=== PATIENT | male | born 1945 | race Caucasian/White ===

== ENCOUNTER 2019-04-26 14:56 | Observation (INO) ==
[2019-04-26] MEDS ORDERED: CeFAZolin Syr 2,000MG/20 ML 2,000 MG/20 ML SYRINGE IVPB ONE (15:09)
[2019-04-26] MEDS ORDERED: Ringers Solution, Lactated 1,000 ML IVC SCH ×2 (15:15→20:01)
[2019-04-26] MEDS ORDERED: *HR* Labetalol 20 MG/4 ML SYRINGE IVP PRN (15:38)
[2019-04-26] MEDS ORDERED: Ondansetron 4 MG/2 ML VIAL IVP PRN ×2 (15:38→20:01)
[2019-04-26] MEDS ORDERED: *HR* Promethazine 25 MG/ML VIAL IVP PRN ×2 (15:38→20:01)
[2019-04-26] MEDS ORDERED: Gabapentin 100 MG CAPSULE PO ONE (15:51)
[2019-04-26] MEDS ORDERED: Ethanol\\Acetic Acid\\Na Ace\\Ben 1,000 ML IRRIG.SOLN IR ONE (16:14)
[2019-04-26] MEDS ORDERED: Dexamethasone 4 MG/ML VIAL ONE (16:16)
[2019-04-26] MEDS ORDERED: Ondansetron 4 MG/2 ML VIAL ONE (16:16)
[2019-04-26] MEDS ORDERED: *HR* Succinylcholine 200 MG/10 ML VIAL IVP ONE (16:16)
[2019-04-26] MEDS ORDERED: Lidocaine -MPF 2% 2 ML VIAL ONE (16:16)
[2019-04-26] MEDS ORDERED: *HR* FentaNYL (PF) 100 MCG/2 ML VIAL ONE ×2 (16:20→17:35)
[2019-04-26] MEDS ORDERED: *HR* Propofol 200 MG/20 ML VIAL IVP ONE (16:21)
[2019-04-26] MEDS ORDERED: *HR* PHENYLEPHRINE 1,000 MCG/10 ML SYRINGE IVP ONE (17:45)
[2019-04-26] MEDS: *HR* HYDROmorphone (PF) 1 MG/ML SYRINGE IVP PRN ×4 (18:31→19:12)
[2019-04-26 19:03] LABS: Hematocrit 32.3 % (37.5-50.1); Hemoglobin 10.3 g/dL (12.9-16.9)
[2019-04-26] MEDS ORDERED: Dextrose Gel 15 GM/37.5 ML TUBE PO PRN ×2 (20:01)
[2019-04-26] MEDS ORDERED: *HR* Dextrose 50 % in Water (Syg) 50 ML SYRINGE IVP PRN (20:01)
[2019-04-26] MEDS ORDERED: *HR* OxyCODONE Immed Rel 5 MG TABLET PO PRN (20:01)
[2019-04-26] MEDS ORDERED: Naloxone 0.4 MG/ML INJ IVP PRN (20:01)
[2019-04-26] MEDS ORDERED: MOM Conc 10 ML UD.LIQ PO PRN (20:01)
[2019-04-26] MEDS ORDERED: Sennosides 8.6 MG TABLET PO PRN (20:01)
[2019-04-26] MEDS ORDERED: D5% in Water 1,000 ML IVC PRN (20:01)
[2019-04-26] MEDS ORDERED: Insulin LISPRO 300 UNITS/3 ML VIAL SQ SCH (21:00)
[2019-04-26] MEDS: Ascorbic Acid 500 MG TABLET PO SCH (22:04)
[2019-04-26] MEDS: HYDROcodone BIT/Homatropine 5 MG TABLET PO PRN (22:04)
[2019-04-27] MEDS: ceFAZolin 2,000 MG in 0.9 % Sodium Chloride 100 ML IVPB SCH ×2 (01:25→08:11)
[2019-04-27 06:35] LABS: Basophils % 0.1 %; Hematocrit 28.2 % (37.5-50.1); Hemoglobin 9.3 g/dL (12.9-16.9); Immature Granulocytes % 0.8 % (0-4); Lymphocytes # 1.5 K/mcL (0.6-4.6); Lymphocytes % 7.7 %; Mean Corpuscular Hemoglobin 29.8 pg (28.0-33.3); Mean Corpuscular Volume 90.4 fL (83.0-100.0); Mean Platelet Volume 10.1 fL (9.4-12.4); Monocytes # 1.3 K/mcL (0.0-1.3); Monocytes % 6.4 %; Neutrophils # 16.9 K/mcL (1.6-8.9); Platelet Count 524 K/mcL (140-400); Red Blood Count 3.12 M/mcL (4.19-5.50); Red Cell Distribution Width 15.9 % (11.5-14.5); White Blood Count 19.9 K/mcL (4.3-11.1)
[2019-04-27 07:04] LABS: BUN/Creatinine Ratio 24 (6-26); Blood Urea Nitrogen 19 mg/dL (8-23); Calcium 8.2 mg/dL (8.6-10.3); Carbon Dioxide 23 mEq/L (23-29); Chloride 109 mEq/L (98-107); Glucose 137 mg/dL (70-105); Osmolality,Calculated 290 (280-300); Potassium 4.2 mEq/L (3.5-5.1); Sodium 138 mEq/L (136-145); eGFR For African Americans > 60 (> 60); eGFR For Non-African Americans > 60 (> 60)
[2019-04-27 07:12] VITALS: BP 148/86
[2019-04-27] MEDS ORDERED: Insulin LISPRO 300 UNITS/3 ML VIAL SQ SCH (07:30)
[2019-04-27] MEDS: Ascorbic Acid 500 MG TABLET PO SCH (08:10)
[2019-04-27] MEDS ORDERED: Multivit/Ca/Min/Fe/FA 1 TAB TABLET PO SCH (09:00)
[2019-04-27] MEDS: HYDROcodone BIT/Homatropine 5 MG TABLET PO PRN (11:15)
[2019-04-27] MEDS ORDERED: Aspirin Enteric Coated 81 MG Tablet PO SCH (16:01)
== END 2019-04-27 12:55 | disposition home health service (06) ==
LOC: SAMDAY 14:56 → 3NENU 14:56
PROVIDERS: ADMIT Orthopaedic Surgery; ATTEND Orthopaedic Surgery

== ENCOUNTER 2019-05-17 11:13 | Inpatient (IN) ==
[2019-05-17] MEDS ORDERED: Naloxone 0.4 MG/ML INJ IVP PRN (12:35)
[2019-05-17 13:06] LABS: Basophils % 0.3 %; Eosinophils # 0.2 K/mcL (0.0-0.6); Eosinophils % 2.3 %; Hematocrit 29.5 % (37.5-50.1); Immature Granulocytes % 0.5 % (0-4); Lymphocytes # 1.1 K/mcL (0.6-4.6); Lymphocytes % 12.1 %; Mean Corpuscular HGB Conc 30.5 g/dL (31.6-35.5); Mean Corpuscular Hemoglobin 26.8 pg (28.0-33.3); Mean Corpuscular Volume 87.8 fL (83.0-100.0); Mean Platelet Volume 9.2 fL (9.4-12.4); Monocytes # 0.6 K/mcL (0.0-1.3); Monocytes % 6.5 %; Neutrophils # 6.9 K/mcL (1.6-8.9); Platelet Count 411 K/mcL (140-400); Red Blood Count 3.36 M/mcL (4.19-5.50); Red Cell Distribution Width 18.6 % (11.5-14.5); Segmented Neutrophils % 78.3 %; White Blood Count 8.9 K/mcL (4.3-11.1)
[2019-05-17 13:11] LABS: INR 1.4; Prothrombin Time 15.4 Seconds (9.4-12.1)
[2019-05-17 13:18] LABS: Alanine Aminotransferase 14 Units/L (7-52); Albumin 2.5 g/dL (3.5-5.7); Albumin/Globulin Ratio 0.9 (1.1-2.2); Alkaline Phosphatase 154 Units/L (34-104); Aspartate Amino Transferase 23 Units/L (13-39); BUN/Creatinine Ratio 16 (6-26); Bilirubin,Total 0.4 mg/dL (0.3-1.0); Blood Urea Nitrogen 13 mg/dL (8-23); Calcium 8.1 mg/dL (8.6-10.3); Carbon Dioxide 24 mEq/L (23-29); Chloride 104 mEq/L (98-107); Globulin 2.7 g/dL (2.4-3.5); Glucose 90 mg/dL (70-105); Osmolality,Calculated 280 (280-300); Phosphorous 3.6 mg/dL (2.7-4.5); Potassium 3.6 mEq/L (3.5-5.1); Sodium 135 mEq/L (136-145); Total Protein 5.2 g/dL (6.4-8.9); eGFR For African Americans > 60 (> 60); eGFR For Non-African Americans > 60 (> 60)
[2019-05-17] MEDS: Piperacillin/Tazobactam 3.375 GM in 0.9 % Sodium Chloride Mini Bag 100 ML IVPB SCH (15:52)
[2019-05-17] MEDS ORDERED: *HR* Heparin 5,000 UNIT/ML VIAL SQ SCH (18:00)
[2019-05-17] MEDS: BuPROPion SR (12 HR) 150 MG TABLET PO SCH (18:07)
[2019-05-17] MEDS: Finasteride 5 MG TABLET PO SCH (18:07)
[2019-05-17] MEDS: *HR* Heparin 5,000 UNIT/ML VIAL SQ SCH (18:11)
[2019-05-17 18:24] LABS: Bilirubin,Urine Negative (Negative); Blood,Urine Negative (Negative); Clarity,Urine Clear (Clear); Color,Urine Yellow (Yellow); Glucose,Urine (UA) Normal (Normal); Ketones,Urine Negative (Negative); Specific Gravity,Urine > 1.030 (1.010-1.025)
[2019-05-17 18:25] LABS: Leukocyte Esterase,Urine Negative (Negative); Nitrite,Urine Negative (Negative); Protein,Urine Trace mg/dL (Neg-Trace); Urobilinogen,Urine Normal (Normal)
[2019-05-17] MEDS ORDERED: Latanoprost 2.5 ML BOTTLE BOTH EYES SCH (21:00)
[2019-05-17] MEDS: Gabapentin 100 MG CAPSULE PO SCH (21:36)
[2019-05-18] MEDS: Piperacillin/Tazobactam 3.375 GM in 0.9 % Sodium Chloride Mini Bag 100 ML IVPB SCH ×3 (00:13→17:24)
[2019-05-18 02:01] LABS: Basophils % 0.2 %; Eosinophils # 0.2 K/mcL (0.0-0.6); Eosinophils % 2.5 %; Hematocrit 27.9 % (37.5-50.1); Hemoglobin 8.4 g/dL (12.9-16.9); Immature Granulocytes % 0.5 % (0-4); Lymphocytes # 1.6 K/mcL (0.6-4.6); Mean Corpuscular HGB Conc 30.1 g/dL (31.6-35.5); Mean Corpuscular Hemoglobin 26.3 pg (28.0-33.3); Mean Corpuscular Volume 87.2 fL (83.0-100.0); Mean Platelet Volume 9.7 fL (9.4-12.4); Monocytes # 0.6 K/mcL (0.0-1.3); Monocytes % 7.5 %; Neutrophils # 5.8 K/mcL (1.6-8.9); Platelet Count 430 K/mcL (140-400); Red Cell Distribution Width 18.8 % (11.5-14.5); Segmented Neutrophils % 70.3 %; White Blood Count 8.3 K/mcL (4.3-11.1)
[2019-05-18 02:16] LABS: % Iron Saturation 7 % (20-55); BUN/Creatinine Ratio 12 (6-26); Blood Urea Nitrogen 11 mg/dL (8-23); Calcium 7.9 mg/dL (8.6-10.3); Carbon Dioxide 27 mEq/L (23-29); Chloride 103 mEq/L (98-107); Glucose 76 mg/dL (70-105); Iron 11 mcg/dL (65-175); Osmolality,Calculated 284 (280-300); Potassium 3.5 mEq/L (3.5-5.1); Sodium 138 mEq/L (136-145); Transferrin 113 mg/dL (203-362); eGFR For African Americans > 60 (> 60); eGFR For Non-African Americans > 60 (> 60)
[2019-05-18 02:34] LABS: Ferritin 137 ng/mL (20-250)
[2019-05-18 02:40] LABS: Folate 21.9 ng/mL (3.0-16.0)
[2019-05-18] MEDS: *HR* Heparin 5,000 UNIT/ML VIAL SQ SCH (06:03)
[2019-05-18] MEDS: Gabapentin 100 MG CAPSULE PO SCH ×2 (08:18→20:28)
[2019-05-18] MEDS: BuPROPion SR (12 HR) 150 MG TABLET PO SCH ×2 (08:18→17:27)
[2019-05-18] MEDS: Finasteride 5 MG TABLET PO SCH (08:19)
[2019-05-18] MEDS ORDERED: Dexamethasone 4 MG/ML VIAL ONE (08:44)
[2019-05-18] MEDS ORDERED: Lidocaine -MPF 2% 2 ML VIAL ONE (08:44)
[2019-05-18] MEDS ORDERED: Lidocaine -MPF 4% 5 ML AMPUL ONE (08:44)
[2019-05-18] MEDS ORDERED: Ondansetron 4 MG/2 ML VIAL ONE (08:44)
[2019-05-18] MEDS ORDERED: *HR* Succinylcholine 200 MG/10 ML VIAL IVP ONE (08:44)
[2019-05-18] MEDS ORDERED: *HR* FentaNYL (PF) 100 MCG/2 ML VIAL ONE ×2 (08:44→11:01)
[2019-05-18] MEDS ORDERED: *HR* Propofol 200 MG/20 ML VIAL IVP ONE (08:44)
[2019-05-18] MEDS ORDERED: amLODIPine 5 MG TABLET PO SCH (09:00)
[2019-05-18] MEDS ORDERED: Ethanol\\Acetic Acid\\Na Ace\\Ben 1,000 ML IRRIG.SOLN IR ONE ×2 (11:00→11:54)
[2019-05-18] MEDS ORDERED: Albumin Human 5% 0 GM/0 ML IV.SOLN ONE (11:53)
[2019-05-18] MEDS ORDERED: *HR* HYDROmorphone PF 0.5 MG/0.5 ML SYRINGE IVP PRN (11:55)
[2019-05-18] MEDS ORDERED: *HR* OxyCODONE Immed Rel 5 MG TABLET PO PRN (11:55)
[2019-05-18] MEDS ORDERED: Ondansetron 4 MG/2 ML VIAL IVP ONE (11:55)
[2019-05-18] MEDS ORDERED: *HR* HYDROMORPHONE 2 MG/ML VIAL ONE (12:38)
[2019-05-18 14:02] LABS: Hematocrit 28.3 % (37.5-50.1); Hemoglobin 8.7 g/dL (12.9-16.9)
[2019-05-18] MEDS ORDERED: MOM Conc 10 ML UD.LIQ PO PRN (14:31)
[2019-05-18] MEDS ORDERED: Naloxone 0.4 MG/ML INJ IVP PRN (14:31)
[2019-05-18] MEDS ORDERED: Ringers Solution, Lactated 1,000 ML IVC SCH (14:31)
[2019-05-18] MEDS ORDERED: Ondansetron 4 MG/2 ML VIAL IVP PRN (14:31)
[2019-05-18] MEDS ORDERED: Sennosides 8.6 MG TABLET PO PRN (14:31)
[2019-05-18] MEDS ORDERED: *HR* Promethazine 25 MG/ML VIAL IVP PRN (14:31)
[2019-05-18] MEDS ORDERED: D5% in Water 1,000 ML IVC PRN (14:31)
[2019-05-18] MEDS ORDERED: Dextrose Gel 15 GM/37.5 ML TUBE PO PRN ×2 (14:31)
[2019-05-18] MEDS ORDERED: *HR* Dextrose 50 % in Water (Syg) 50 ML SYRINGE IVP PRN (14:31)
[2019-05-18] MEDS: Ascorbic Acid 500 MG TABLET PO SCH (17:26)
[2019-05-18] MEDS: Insulin LISPRO 300 UNITS/3 ML VIAL SQ SCH ×2 (17:28→20:27)
[2019-05-18] MEDS: Latanoprost 2.5 ML BOTTLE BOTH EYES SCH (20:29)
[2019-05-19 00:06] LABS: Enterococcus by PCR Not Detected (Not Detect); Staphylococcus aureus by PCR DETECTED (Not Detect); Staphylococcus by PCR Not Detected (Not Detect); blaKPC Carbapenem-Resist Gene Not Detected (Not Detect); mecA Methicillin-Resist Gene Not Detected (Not Detect); vanA/B Vancomycin-Resist Genes Not Detected (Not Detect)
[2019-05-19 00:07] LABS: Acinetobacter baumannii by PCR Not Detected (Not Detect); Candida albicans by PCR Not Detected (Not Detect); Candida glabrata by PCR Not Detected (Not Detect); Candida krusei by PCR Not Detected (Not Detect); Candida parapsilosis by PCR Not Detected (Not Detect); Candida tropicalis by PCR Not Detected (Not Detect); Enterobacter cloacae Cmplx PCR Not Detected (Not Detect); Enterobacteriaceae by PCR Not Detected (Not Detect); Escherichia coli by PCR Not Detected (Not Detect); Klebsiella oxytoca by PCR Not Detected (Not Detect); Klebsiella pneumoniae by PCR Not Detected (Not Detect); Proteus by PCR Not Detected (Not Detect); Pseudomonas aeruginosa by PCR Not Detected (Not Detect); Serratia marcescens by PCR Not Detected (Not Detect); Streptococcus agalactiae(B)PCR Not Detected (Not Detect); Streptococcus by PCR Not Detected (Not Detect); Streptococcus pneumoniae PCR Not Detected (Not Detect); Streptococcus pyogenes (A) PCR Not Detected (Not Detect)
[2019-05-19] MEDS: Piperacillin/Tazobactam 3.375 GM in 0.9 % Sodium Chloride Mini Bag 100 ML IVPB SCH ×4 (00:17→23:56)
[2019-05-19 02:33] LABS: Basophils % 0.2 %; Hematocrit 27.8 % (37.5-50.1); Hemoglobin 8.4 g/dL (12.9-16.9); Immature Granulocytes % 0.7 % (0-4); Lymphocytes # 1.1 K/mcL (0.6-4.6); Lymphocytes % 10.7 %; Mean Corpuscular HGB Conc 30.2 g/dL (31.6-35.5); Mean Corpuscular Hemoglobin 26.5 pg (28.0-33.3); Mean Corpuscular Volume 87.7 fL (83.0-100.0); Mean Platelet Volume 9.1 fL (9.4-12.4); Monocytes # 0.6 K/mcL (0.0-1.3); Monocytes % 5.6 %; Neutrophils # 8.6 K/mcL (1.6-8.9); Platelet Count 402 K/mcL (140-400); Red Blood Count 3.17 M/mcL (4.19-5.50); Red Cell Distribution Width 18.2 % (11.5-14.5); Segmented Neutrophils % 82.8 %; White Blood Count 10.4 K/mcL (4.3-11.1)
[2019-05-19 02:50] LABS: BUN/Creatinine Ratio 13 (6-26); Blood Urea Nitrogen 11 mg/dL (8-23); Calcium 8.1 mg/dL (8.6-10.3); Carbon Dioxide 24 mEq/L (23-29); Chloride 107 mEq/L (98-107); Glucose 130 mg/dL (70-105); Osmolality,Calculated 287 (280-300); Potassium 4.1 mEq/L (3.5-5.1); Sodium 138 mEq/L (136-145); eGFR For African Americans > 60 (> 60); eGFR For Non-African Americans > 60 (> 60)
[2019-05-19] MEDS: Insulin LISPRO 300 UNITS/3 ML VIAL SQ SCH ×4 (07:48→20:57)
[2019-05-19] MEDS: Gabapentin 100 MG CAPSULE PO SCH ×2 (08:50→20:54)
[2019-05-19] MEDS: Ascorbic Acid 500 MG TABLET PO SCH ×2 (08:51→16:10)
[2019-05-19] MEDS: Multivit/Ca/Min/Fe/FA 1 TAB TABLET PO SCH (08:51)
[2019-05-19] MEDS: BuPROPion SR (12 HR) 150 MG TABLET PO SCH ×2 (08:51→16:10)
[2019-05-19] MEDS: amLODIPine 5 MG TABLET PO SCH (08:51)
[2019-05-19] MEDS: Finasteride 5 MG TABLET PO SCH (08:51)
[2019-05-19] MEDS: Aspirin Enteric Coated 81 MG Tablet PO SCH (12:20)
[2019-05-19] MEDS: Magic Mouthwash 10 ML UD Cup PO SCH ×2 (13:04→16:11)
[2019-05-19] MEDS: Latanoprost 2.5 ML BOTTLE BOTH EYES SCH (20:55)
[2019-05-20 02:13] LABS: Basophils % 0.5 %; Eosinophils # 0.3 K/mcL (0.0-0.6); Eosinophils % 3.4 %; Hematocrit 26.4 % (37.5-50.1); Immature Granulocytes % 1.1 % (0-4); Lymphocytes # 1.6 K/mcL (0.6-4.6); Lymphocytes % 19.3 %; Mean Corpuscular HGB Conc 30.3 g/dL (31.6-35.5); Mean Corpuscular Hemoglobin 26.8 pg (28.0-33.3); Mean Corpuscular Volume 88.3 fL (83.0-100.0); Mean Platelet Volume 9.4 fL (9.4-12.4); Monocytes # 0.5 K/mcL (0.0-1.3); Monocytes % 5.5 %; Neutrophils # 5.8 K/mcL (1.6-8.9); Nucleated Red Blood Cells 0.2 /100 WBC (0); Platelet Count 393 K/mcL (140-400); Red Blood Count 2.99 M/mcL (4.19-5.50); Red Cell Distribution Width 18.6 % (11.5-14.5); Segmented Neutrophils % 70.2 %; White Blood Count 8.3 K/mcL (4.3-11.1)
[2019-05-20 02:34] LABS: BUN/Creatinine Ratio 16 (6-26); Blood Urea Nitrogen 12 mg/dL (8-23); Calcium 7.9 mg/dL (8.6-10.3); Carbon Dioxide 24 mEq/L (23-29); Chloride 105 mEq/L (98-107); Glucose 74 mg/dL (70-105); Osmolality,Calculated 288 (280-300); Potassium 3.9 mEq/L (3.5-5.1); Sodium 140 mEq/L (136-145); eGFR For African Americans > 60 (> 60); eGFR For Non-African Americans > 60 (> 60)
[2019-05-20] MEDS: Magic Mouthwash 10 ML UD Cup PO SCH ×3 (06:37→16:27)
[2019-05-20] MEDS: Aspirin Enteric Coated 81 MG Tablet PO SCH (08:07)
[2019-05-20] MEDS: Ascorbic Acid 500 MG TABLET PO SCH ×2 (08:08→16:27)
[2019-05-20] MEDS: Multivit/Ca/Min/Fe/FA 1 TAB TABLET PO SCH (08:08)
[2019-05-20] MEDS: Finasteride 5 MG TABLET PO SCH (08:08)
[2019-05-20] MEDS: Gabapentin 100 MG CAPSULE PO SCH ×2 (08:08→21:03)
[2019-05-20] MEDS: amLODIPine 5 MG TABLET PO SCH (08:08)
[2019-05-20] MEDS: BuPROPion SR (12 HR) 150 MG TABLET PO SCH ×2 (08:08→16:27)
[2019-05-20] MEDS: Piperacillin/Tazobactam 3.375 GM in 0.9 % Sodium Chloride Mini Bag 100 ML IVPB SCH ×2 (08:08→16:28)
[2019-05-20] MEDS: Insulin LISPRO 300 UNITS/3 ML VIAL SQ SCH ×4 (08:10→21:07)
[2019-05-20] MEDS ORDERED: Aminoglycoside Consult 1 EACH MC ONE (09:45)
[2019-05-20] MEDS: Latanoprost 2.5 ML BOTTLE BOTH EYES SCH (21:04)
[2019-05-21] MEDS: HYDROcodone BIT/Homatropine 5 MG TABLET PO PRN (03:32)
[2019-05-21 05:32] LABS: Basophils # 0.1 K/mcL (0.0-0.2); Basophils % 0.5 %; Eosinophils # 0.3 K/mcL (0.0-0.6); Eosinophils % 2.9 %; Hematocrit 28.1 % (37.5-50.1); Hemoglobin 8.4 g/dL (12.9-16.9); Immature Granulocytes % 1.6 % (0-4); Lymphocytes # 1.7 K/mcL (0.6-4.6); Mean Corpuscular HGB Conc 29.9 g/dL (31.6-35.5); Mean Corpuscular Hemoglobin 26.3 pg (28.0-33.3); Mean Corpuscular Volume 88.1 fL (83.0-100.0); Mean Platelet Volume 9.3 fL (9.4-12.4); Monocytes # 0.6 K/mcL (0.0-1.3); Monocytes % 5.6 %; Neutrophils # 7.7 K/mcL (1.6-8.9); Platelet Count 415 K/mcL (140-400); Red Blood Count 3.19 M/mcL (4.19-5.50); Red Cell Distribution Width 18.7 % (11.5-14.5); Segmented Neutrophils % 73.4 %; White Blood Count 10.5 K/mcL (4.3-11.1)
[2019-05-21 05:51] LABS: BUN/Creatinine Ratio 13 (6-26); Blood Urea Nitrogen 10 mg/dL (8-23); Carbon Dioxide 27 mEq/L (23-29); Chloride 107 mEq/L (98-107); Glucose 75 mg/dL (70-105); Osmolality,Calculated 284 (280-300); Potassium 3.7 mEq/L (3.5-5.1); Sodium 138 mEq/L (136-145); eGFR For African Americans > 60 (> 60); eGFR For Non-African Americans > 60 (> 60)
[2019-05-21] MEDS: Finasteride 5 MG TABLET PO SCH (07:36)
[2019-05-21] MEDS: Multivit/Ca/Min/Fe/FA 1 TAB TABLET PO SCH (07:36)
[2019-05-21] MEDS: Ascorbic Acid 500 MG TABLET PO SCH ×2 (07:36→16:10)
[2019-05-21] MEDS: BuPROPion SR (12 HR) 150 MG TABLET PO SCH ×2 (07:36→16:10)
[2019-05-21] MEDS: Gabapentin 100 MG CAPSULE PO SCH ×2 (07:36→21:23)
[2019-05-21] MEDS: amLODIPine 5 MG TABLET PO SCH (07:36)
[2019-05-21] MEDS: Aspirin Enteric Coated 81 MG Tablet PO SCH (07:36)
[2019-05-21] MEDS: Magic Mouthwash 10 ML UD Cup PO SCH ×3 (07:37→16:10)
[2019-05-21] MEDS: Insulin LISPRO 300 UNITS/3 ML VIAL SQ SCH ×4 (07:54→21:32)
[2019-05-21] MEDS: Lactobacillus 1 EACH CAP.SPRINK PO SCH ×2 (09:30→21:32)
[2019-05-21] MEDS: ceFAZolin 2,000 MG in 0.9 % Sodium Chloride 100 ML IVPB SCH ×3 (09:30→23:31)
[2019-05-21] MEDS: Latanoprost 2.5 ML BOTTLE BOTH EYES SCH (21:23)
[2019-05-22 02:12] LABS: Basophils # 0.1 K/mcL (0.0-0.2); Basophils % 0.5 %; Eosinophils # 0.3 K/mcL (0.0-0.6); Eosinophils % 2.7 %; Hematocrit 28.3 % (37.5-50.1); Hemoglobin 8.4 g/dL (12.9-16.9); Immature Granulocytes % 1.2 % (0-4); Lymphocytes # 2.3 K/mcL (0.6-4.6); Lymphocytes % 19.1 %; Mean Corpuscular HGB Conc 29.7 g/dL (31.6-35.5); Mean Corpuscular Hemoglobin 26.3 pg (28.0-33.3); Mean Corpuscular Volume 88.7 fL (83.0-100.0); Mean Platelet Volume 9.4 fL (9.4-12.4); Monocytes # 0.8 K/mcL (0.0-1.3); Monocytes % 6.2 %; Neutrophils # 8.5 K/mcL (1.6-8.9); Nucleated Red Blood Cells 0.2 /100 WBC (0); Platelet Count 438 K/mcL (140-400); Red Blood Count 3.19 M/mcL (4.19-5.50); Red Cell Distribution Width 18.6 % (11.5-14.5); Segmented Neutrophils % 70.3 %; White Blood Count 12.1 K/mcL (4.3-11.1)
[2019-05-22 02:22] LABS: BUN/Creatinine Ratio 14 (6-26); Blood Urea Nitrogen 12 mg/dL (8-23); Carbon Dioxide 25 mEq/L (23-29); Chloride 106 mEq/L (98-107); Glucose 73 mg/dL (70-105); Magnesium 2.2 mg/dL (1.6-2.6); Osmolality,Calculated 284 (280-300); Potassium 3.9 mEq/L (3.5-5.1); Sodium 138 mEq/L (136-145); eGFR For African Americans > 60 (> 60); eGFR For Non-African Americans > 60 (> 60)
[2019-05-22] MEDS: Insulin LISPRO 300 UNITS/3 ML VIAL SQ SCH ×4 (07:52→20:31)
[2019-05-22] MEDS: Lactobacillus 1 EACH CAP.SPRINK PO SCH ×2 (08:11→20:30)
[2019-05-22] MEDS: ceFAZolin 2,000 MG in 0.9 % Sodium Chloride 100 ML IVPB SCH ×2 (08:11→16:15)
[2019-05-22] MEDS: Magic Mouthwash 10 ML UD Cup PO SCH ×3 (08:11→17:03)
[2019-05-22] MEDS: Finasteride 5 MG TABLET PO SCH (08:11)
[2019-05-22] MEDS: Ascorbic Acid 500 MG TABLET PO SCH ×2 (08:12→16:08)
[2019-05-22] MEDS: amLODIPine 5 MG TABLET PO SCH (08:12)
[2019-05-22] MEDS: Aspirin Enteric Coated 81 MG Tablet PO SCH (08:12)
[2019-05-22] MEDS: Multivit/Ca/Min/Fe/FA 1 TAB TABLET PO SCH (08:12)
[2019-05-22] MEDS: BuPROPion SR (12 HR) 150 MG TABLET PO SCH ×2 (08:13→16:08)
[2019-05-22] MEDS: Gabapentin 100 MG CAPSULE PO SCH ×2 (08:13→20:30)
[2019-05-22] MEDS: HYDROcodone BIT/Homatropine 5 MG TABLET PO PRN ×2 (11:48→20:30)
[2019-05-22] MEDS: Latanoprost 2.5 ML BOTTLE BOTH EYES SCH (20:30)
[2019-05-23] MEDS: ceFAZolin 2,000 MG in 0.9 % Sodium Chloride 100 ML IVPB SCH ×2 (00:48→09:11)
[2019-05-23 05:19] LABS: Basophils # 0.1 K/mcL (0.0-0.2); Basophils % 0.5 %; Eosinophils # 0.4 K/mcL (0.0-0.6); Eosinophils % 3.7 %; Hematocrit 28.7 % (37.5-50.1); Hemoglobin 8.5 g/dL (12.9-16.9); Immature Granulocytes % 1.6 % (0-4); Lymphocytes # 2.6 K/mcL (0.6-4.6); Lymphocytes % 23.5 %; Mean Corpuscular HGB Conc 29.6 g/dL (31.6-35.5); Mean Corpuscular Hemoglobin 26.2 pg (28.0-33.3); Mean Corpuscular Volume 88.3 fL (83.0-100.0); Mean Platelet Volume 9.4 fL (9.4-12.4); Monocytes # 0.8 K/mcL (0.0-1.3); Monocytes % 6.9 %; Platelet Count 458 K/mcL (140-400); Red Blood Count 3.25 M/mcL (4.19-5.50); Red Cell Distribution Width 18.8 % (11.5-14.5); Segmented Neutrophils % 63.8 %; White Blood Count 10.9 K/mcL (4.3-11.1)
[2019-05-23 05:39] LABS: BUN/Creatinine Ratio 13 (6-26); Blood Urea Nitrogen 13 mg/dL (8-23); Calcium 8.2 mg/dL (8.6-10.3); Carbon Dioxide 29 mEq/L (23-29); Chloride 106 mEq/L (98-107); Glucose 80 mg/dL (70-105); Magnesium 2.3 mg/dL (1.6-2.6); Osmolality,Calculated 287 (280-300); Potassium 3.9 mEq/L (3.5-5.1); Sodium 139 mEq/L (136-145); eGFR For African Americans > 60 (> 60); eGFR For Non-African Americans > 60 (> 60)
[2019-05-23] MEDS: amLODIPine 5 MG TABLET PO SCH (08:06)
[2019-05-23] MEDS: Aspirin Enteric Coated 81 MG Tablet PO SCH (08:06)
[2019-05-23] MEDS: BuPROPion SR (12 HR) 150 MG TABLET PO SCH (08:06)
[2019-05-23] MEDS: Ascorbic Acid 500 MG TABLET PO SCH (08:06)
[2019-05-23] MEDS: Finasteride 5 MG TABLET PO SCH (08:07)
[2019-05-23] MEDS: Multivit/Ca/Min/Fe/FA 1 TAB TABLET PO SCH (08:08)
[2019-05-23] MEDS: Lactobacillus 1 EACH CAP.SPRINK PO SCH (08:08)
[2019-05-23] MEDS: Gabapentin 100 MG CAPSULE PO SCH (08:08)
[2019-05-23] MEDS: Magic Mouthwash 10 ML UD Cup PO SCH (08:10)
[2019-05-23] MEDS: Insulin LISPRO 300 UNITS/3 ML VIAL SQ SCH ×2 (08:35→11:47)
[2019-05-23 12:31] VITALS: BP 131/78
== END 2019-05-23 16:35 | disposition home health service (06) ==
LOC: 3NENU 12:12 → INTOOBSV 12:12 → SUATTDRO 12:35
PROVIDERS: ADMIT Student in an Organized Health Care Education/Training Program; ATTEND Pharmacist